=== PATIENT | male | born 2000 | race Caucasian/White ===

== ENCOUNTER 2021-11-28 13:37 | Emergency (ER) | payer OTHER ==
[~2021-11-28] VITALS: Ht 177.8 cm; Wt 112.1 kg
[2021-11-28] MEDS ORDERED: CEPHALEXIN 500 MG CAP PO ONE (18:05)
[2021-11-28] MEDS ORDERED: MIRA3350 PO (18:24)
[2021-11-28] MEDS ORDERED: CEPH500C PO (18:24)
[2021-11-28] MEDS ORDERED: PERC5TAB12 PO (18:24)
[2021-11-28] MEDS ORDERED: PERCOCET 5MG/325MG TAB PO ONE (18:25)
[2021-11-28 18:41] VITALS: BP 134/66
== END 2021-11-28 18:43 | disposition home or self-care (01) ==
LOC: M ED 13:37
DX: S52.351A Displaced comminuted fracture of shaft of radius, right arm, initial encounter for closed fracture (principal); S51.811A Laceration without foreign body of right forearm, initial encounter; W22.8XXA Striking against or struck by other objects, initial encounter; F17.200 Nicotine dependence, unspecified, uncomplicated; Y92.9 Unspecified place or not applicable; Y93.9 Activity, unspecified; Y99.1 Military activity

== ENCOUNTER → 2021-12-02 | Outpatient (CLI) | payer OTHER ==
[~2021-12-02] MED LIST: CEPH500C PO; MIRA3350 PO; PERC5TAB12 PO
== END ==
LOC: M SOG 08:26
PROVIDERS: ATTEND Physician Assistant
DX: M79.631 Pain in right forearm (principal)

== ENCOUNTER → 2021-12-16 | Outpatient (CLI) | payer OTHER | LOC: M SOG 07:51 | PROVIDERS: ATTEND Orthopaedic Surgery Hand Surgery | DX: S52.101A Unspecified fracture of upper end of right radius, initial encounter for closed fracture (principal) ==

== ENCOUNTER → 2021-12-25 | Outpatient (CLI) | payer OTHER | LOC: M SOG 08:30 | PROVIDERS: ATTEND Orthopaedic Surgery Hand Surgery | DX: S52.101A Unspecified fracture of upper end of right radius, initial encounter for closed fracture (principal) ==

== ENCOUNTER → 2022-01-22 | Outpatient (CLI) | payer OTHER | LOC: M SOG 08:07 | PROVIDERS: ATTEND Orthopaedic Surgery Hand Surgery | DX: S52.101D Unspecified fracture of upper end of right radius, subsequent encounter for closed fracture with routine healing (principal) ==

== ENCOUNTER → 2022-02-12 | Outpatient (CLI) | payer OTHER | LOC: M SOG 07:53 | PROVIDERS: ATTEND Orthopaedic Surgery Hand Surgery | DX: S52.101A Unspecified fracture of upper end of right radius, initial encounter for closed fracture (principal); X58.XXXA Exposure to other specified factors, initial encounter; Y92.9 Unspecified place or not applicable; Z53.9 Procedure and treatment not carried out, unspecified reason ==

== ENCOUNTER → 2022-03-12 | Outpatient (CLI) | payer OTHER | LOC: M SOG 08:05 | PROVIDERS: ATTEND Physician Assistant | DX: Z47.89 Encounter for other orthopedic aftercare (principal) ==

== ENCOUNTER → 2023-07-01 | Outpatient (CLI) | payer OTHER | LOC: M RAD 07:10 | PROVIDERS: ATTEND Physician Assistant | DX: Z87.820 Personal history of traumatic brain injury (principal) ==